=== PATIENT | female | born 1985 ===

== ENCOUNTER 2019-01-23 21:22 | Emergency (ER) | payer MEDICAID, OTHER ==
[2019-01-23 21:45] VITALS: BP 145/80; PULSE 85; RESP 16; TEMP 98.5; O2SAT 99
[2019-01-23 22:31] LABS: BASO # 0.1 K/uL (0.0-0.2); BASO % 0.6 % (0.0-2.0); EOS # 0.2 K/uL (0.0-0.7); EOS % 1.3 % (0.0-4.0); HEMOGLOBIN 12.8 g/dL (12.0-16.0); LYMPH # 2.5 K/uL (1.0-4.3); LYMPH % 21.4 % (20.0-40.0); MEAN CORPUSCULAR HEMOGLOBIN 29.2 pg (27.0-31.0); MEAN CORPUSCULAR HGB CONC 33.9 g/dL (33.0-37.0); MEAN PLATELET VOLUME 8.8 fl (7.2-11.7); MONO # 0.8 K/uL (0.0-0.8); MONO % 6.7 % (0.0-10.0); NEUT # 8.2 K/uL (1.8-7.0); NRBC % 0.1 % (0.0-0.0); RBC 4.37 Mil/uL (3.80-5.20); RED CELL DISTRIBUTION WIDTH 13.9 % (11.5-14.5); WHITE BLOOD COUNT 11.7 K/uL (4.8-10.8)
[2019-01-23 22:33] LABS: SQUAMOUS EPITHIAL 12 /hpf (0-5); URINE BILIRUBIN NEGATIVE (NEGATIVE); URINE BLOOD NEGATIVE (NEGATIVE); URINE CLARITY CLOUDY (Clear); URINE COLOR YELLOW (YELLOW); URINE GLUCOSE (UA) NEG (NEGATIVE); URINE LEUKOCYTE ESTERASE NEG Leu/uL (Negative); URINE PROTEIN NEGATIVE (NEGATIVE); URINE UROBILINOGEN 0.2-1.0 mg/dL (0.2-1.0)
[2019-01-23 22:36] LABS: ALB/GLOB RATIO 1.5 (1.0-2.1); ALT/SGPT 32 U/L (9-52); AST/SGOT 35 U/L (14-36); BLOOD UREA NITROGEN 9 mg/dl (7-17); CALCIUM 9.4 mg/dL (8.4-10.2); GFR NON-AFRICAN AMERICAN > 60; LIPASE 74 U/L (23-300)
--- NOTE | 2019-01-23 23:15 | ED PDOC ---
HPI: Back Time Seen by Provider: 01/23/19 21:48 Chief Complaint (Nursing): Back Pain History/Exam Limitations: language barrier (nigerian speaking, rn translated) Onset/Duration Of Symptoms: Days Additional Complaint(s): 33 yo F present for right sided back pain for 4 months. Pt reports pain has been constant since she was and continued after giving 4 months ago, she notes early this morning at 0200 the pain got worse and wrapped around to the RUQ associated with mild nausea. Pt took Advil this morning with mild relief. Movement and deep breaths make the pain worse. Pt denies heavy lifting or injuries. Denies chest pain, SOB, vomiting, urinary symptoms, changes in bowel movements, leg pain or swelling. Denies h/o kidney stones pt is Past Medical History Reviewed: Historical Data, Nursing Documentation, Vital Signs Vital Signs: Last Vital Signs Temp 98.5 F 01/23/19 21:44 Pulse 85 01/23/19 21:44 Resp 16 01/23/19 21:44 BP 145/80 01/23/19 21:44 Pulse Ox 99 01/23/19 21:44 Primary Care Provider: FAMILY PROVIDER,NO - Medical History PMH: Denies: Depression, Diabetes, HTN, Chronic Kidney Disease - Surgical History Surgical History: - Family History Family History: States: No Known Family Hx - Home Medications Home Medications: Ambulatory Orders Medication Instructions Recorded Docusate [Colace] 100 mg PO BID #60 cap 09/12/18 Ferrous Sulfate [Feosol] 324 mg PO DAILY #30 ect 09/12/18 Ibuprofen [Motrin Tab] 600 mg PO Q6H PRN #60 tab 09/12/18 Multivit/Folic Acid/I 1 tab PO DAILY #30 tab 09/12/18 [] Cyclobenzaprine [Cyclobenzaprine 10 mg PO TID PRN #12 tab 01/23/19 HCl] Naproxen 500 mg PO BID PRN #20 tab 01/23/19 - Allergies Allergies/Adverse Reactions: Allergies Allergy/AdvReac Type Severity Reaction Status Date / Time No Known Allergies Allergy Verified 01/23/19 21:43 Review of Systems Constitutional: Negative for: Fever, Chills Cardiovascular: Negative for: Chest Pain Respiratory: Negative for: Cough, Shortness of Breath Gastrointestinal: Positive for: Nausea, Abdominal Pain. Negative for: Vomiting, Diarrhea, Constipation Genitourinary Female: Negative for: Dysuria, Frequency, Hematuria Musculoskeletal: Positive for: Back Pain Physical Exam - Reviewed Nursing Documentation Reviewed: Yes Vital Signs Reviewed: Yes - Physical Exam Comments: GENERAL APPEARANCE: Patient is awake, alert, oriented x 3, in no distress. SKIN: Warm, dry; (-) cyanosis. EYES: (-) conjunctival pallor, (-) scleral icterus. ENMT: Mucous membranes moist. NECK: (-) tenderness, (-) stiffness, (-) lymphadenopathy. CHEST AND RESPIRATORY: (-) rales, (-) rhonchi, (-) wheezes; breath sounds equal bilaterally. HEART AND CARDIOVASCULAR: (-) irregularity; (-) murmur, (-) gallop. ABDOMEN AND GI: (-) distention. soft Bowel sounds active; (+)mild tenderness to RUQ and right mid quadrant. (-) guarding, (-) rebound, (-) palpable masses, BACK: (+) mild right CVAT extending down to lumbar muscles (-)midline tenderness (+)FROM EXTREMITIES: (-) deformity, (-) edema, (+) distal pulses. NEURO AND PSYCH: Mental status as above; (-) focal findings. - Laboratory Results Result Diagrams: 01/23/19 22:17 01/23/19 22:17 Lab Results: Total Bilirubin 0.2 mg/dl (0.2-1.3) 01/23/19 22:17 AST 35 U/L (14-36) 01/23/19 22:17 ALT 32 U/L (9-52) 01/23/19 22:17 Alkaline Phosphatase 78 U/L (38-126) 01/23/19 22:17 Total Protein 8.2 G/DL (6.3-8.2) 01/23/19 22:17 Albumin 5.0 g/dL (3.5-5.0) 01/23/19 22:17 Globulin 3.2 gm/dL (2.2-3.9) 01/23/19 22:17 Albumin/Globulin Ratio 1.5 (1.0-2.1) 01/23/19 22:17 Lipase 74 U/L (23-300) 01/23/19 22:17 Urine Color Yellow (YELLOW) 01/23/19 22:20 Urine Clarity Cloudy (Clear) 01/23/19 22:20 Urine pH 6.0 (5.0-8.0) 01/23/19 22:20 Ur Specific [place] 1.016 (1.003-1.030) 01/23/19 22:20 Urine Protein Negative mg/dL (NEGATIVE) 01/23/19 22:20 Urine Glucose (UA) Neg mg/dL (NEGATIVE) 01/23/19 22:20 Urine Ketones Negative mg/dL (NEGATIVE) 01/23/19 22:20 Urine Blood Negative (NEGATIVE) 01/23/19 22:20 Urine Nitrate Negative (NEGATIVE) 01/23/19 22:20 Urine Bilirubin Negative (NEGATIVE) 01/23/19 22:20 Urine Urobilinogen 0.2-1.0 mg/dL (0.2-1.0) 01/23/19 22:20 Ur Leukocyte Esterase Neg Mahesh/uL (Negative) 01/23/19 22:20 Urine RBC (Auto) 3 /hpf (0-3) 01/23/19 22:20 Urine Microscopic WBC 2 /hpf (0-5) 01/23/19 22:20 Ur Squamous Epith Cells 12 /hpf (0-5) H 01/23/19 22:20 - ECG O2 Sat by Pulse Oximetry: 99 Medical Decision Making Medical Decision Makin:48 initial eval -- UTI vs pyelo vs abdominal pain vs muscle pain -- labs -- UA -- CXR -- TOradol IM -- re eval 23:15 on re eval pt reports pain is pretty much resolved at this time, abdomen is soft and non tender, UA unremarkable, labs unremarkable, mild leukocytosis, pain on going for 4 months, likely muscular related Discussed results, diagnosis, treatment, return precautions and f/u with pt who is understanding, in agreement and stable for dc Disposition - Clinical Impression Clinical Impression: Back pain, Abdominal pain - Patient ED Disposition Is Patient to be Admitted: No Counseled Patient/Family Regarding: Studies Performed, Diagnosis, Need For Followup, Rx Given - Disposition Referrals: [facility] [Outside] Disposition: Routine/Home Disposition Time: 23:26 Condition: IMPROVED Additional Instructions: Berhane por dejarnos cuidar de ti hoy. La atencin mdica de emergencia que recibi hoy se dirigi a hillary sntomas agudos. Si le recetaron algn medicamento, llnelo y tmelo segn las indicaciones. No conduzca ni [place]wick alcohol cuando est tomando flexeril. Los sntomas pueden tardar varios fagan en resolverse. Regrese al Departamento de Emergencias si hillary sntomas empeoran, no mejoran o si tiene otros problemas. Comunquese con gale mdico dentro de 2 fagan para jesus nueva evaluacin y yuliana un seguimiento o llame a gilberto de los mdicos / clnicas a los que montesinos sido referido y que figuran en el formulario de Informacin de visita al paciente que se incluye en gale paquete de genevieve. Lleve todos los documentos que recibi al momento del genevieve junto con los medicamentos que est tomando para gale visita de seguimiento. Nuestro tratamiento no puede reemplazar la atencin mdica continua por parte de un proveedor de atencin primaria (PCP) fuera del departamento de emergencias. Prescriptions: Cyclobenzaprine [Cyclobenzaprine HCl] 10 mg PO TID PRN #12 tab PRN Reason: muscle pain Naproxen 500 mg PO BID PRN #20 tab PRN Reason: Pain, Moderate (4-7) Instructions: Low Back Pain (DC), Acute Abdomen (Belly Pain), Stomach Ache and Stomach Upset Forms: [employer] (Colombian) Print Language: HUNGARIAN - POA Present On Arrival: None
--- NOTE | 2019-01-24 09:47 | RAD ---
Date of service: 01/23/2019 HISTORY: ruq pain COMPARISON: No prior. TECHNIQUE: Chest PA and lateral views FINDINGS: LUNGS: No active pulmonary disease. PLEURA: No significant pleural effusion identified. No pneumothorax apparent. CARDIOVASCULAR: No aortic atherosclerotic calcification present. Normal cardiac size. No pulmonary vascular congestion. OSSEOUS STRUCTURES: No significant abnormalities. VISUALIZED UPPER ABDOMEN: Normal. OTHER FINDINGS: None. IMPRESSION: No acute cardiopulmonary disease appreciated.
== END 2019-01-23 23:28 | disposition home or self-care (01) ==
LOC: H.ER 21:22
DX: M54.9 Dorsalgia, unspecified (principal); R10.2 Pelvic and perineal pain
CPT/HCPCS: 71046; 80053; 81003; 81025; 83690; 85025; 96374; 99283; J1885

== ENCOUNTER 2019-01-24 00:44 | Inpatient (IN) | payer MEDICAID, OTHER ==
[2019-01-24 01:36] LABS: BASO # 0.1 K/uL (0.0-0.2); BASO % 0.4 % (0.0-2.0); EOS # 0.1 K/uL (0.0-0.7); EOS % 0.8 % (0.0-4.0); HEMOGLOBIN 12.5 g/dL (12.0-16.0); LYMPH # 2.1 K/uL (1.0-4.3); LYMPH % 15.2 % (20.0-40.0); MEAN CELL VOLUME 86.2 fl (81.0-99.0); MEAN CORPUSCULAR HEMOGLOBIN 28.9 pg (27.0-31.0); MEAN CORPUSCULAR HGB CONC 33.6 g/dL (33.0-37.0); MONO # 0.6 K/uL (0.0-0.8); MONO % 4.5 % (0.0-10.0); NEUT # 11.1 K/uL (1.8-7.0); NEUT % 79.1 % (50.0-75.0); RBC 4.33 Mil/uL (3.80-5.20); RED CELL DISTRIBUTION WIDTH 13.6 % (11.5-14.5)
--- NOTE | 2019-01-24 01:37 | ED PDOC ---
HPI: Abdomen Time Seen by Provider: 01/24/19 00:58 Chief Complaint (Nursing): Abdominal Pain Chief Complaint (Provider): Abdominal Pain History Per: Patient History/Exam Limitations: no limitations Onset/Duration Of Symptoms: Hrs Additional Complaint(s): 33 y/o female with history of recent delivery in August, presents for abdominal pain. Patient states that during her she had intermittent RUQ pain. Today she presents for similar pain the pain was more intense and involves the right flank and back. Patient was seen in fast track at this ED just prior to this presentation and was diagnosed with musculoskeltal pain. At that time she had normal labs and CXR. Patient left the ER and immediately came back stating that the pain is much more intense now and in her RUQ. Patient has associated nausea. She states pain is worse on inhalation. Past Medical History Reviewed: Historical Data, Nursing Documentation, Vital Signs Vital Signs: Last Vital Signs Temp 97.7 F 01/24/19 00:52 Pulse 81 01/24/19 00:52 Resp 16 01/24/19 00:52 BP 164/72 H 01/24/19 00:52 Pulse Ox 100 01/24/19 00:52 Primary Care Provider: FAMILY PROVIDER,NO - Medical History PMH: No Chronic Diseases Denies: Depression, Diabetes, HTN, Chronic Kidney Disease - Surgical History Surgical History: - Family History Family History: States: Unknown Family Hx - Social History Current smoker - smoking cessation education provided: No Alcohol: None Drugs: Denies - Home Medications Home Medications: Ambulatory Orders Medication Instructions Recorded No Known Home Med 01/24/19 - Allergies Allergies/Adverse Reactions: Allergies Allergy/AdvReac Type Severity Reaction Status Date / Time No Known Allergies Allergy Verified 01/23/19 21:43 Review of Systems ROS Statement: Except As Marked, All Systems Reviewed And Found Negative Gastrointestinal: Positive for: Nausea, Abdominal Pain Physical Exam - Reviewed Nursing Documentation Reviewed: Yes Vital Signs Reviewed: Yes - Physical Exam Appears: Positive for: Uncomfortable Head Exam: Positive for: ATRAUMATIC, NORMAL INSPECTION, NORMOCEPHALIC Skin: Positive for: Normal Color, Warm, DRY Eye Exam: Positive for: EOMI, Normal appearance, PERRL Cardiovascular/Chest: Positive for: Regular Rate, Rhythm. Negative for: Murmur Respiratory: Positive for: Normal Breath Sounds. Negative for: Respiratory Distress Gastrointestinal/Abdominal: Positive for: Tenderness (Positive Wilkinson's sign) Back: Positive for: Normal Inspection. Negative for: L CVA Tenderness, R CVA Tenderness Extremity: Positive for: Normal ROM. Negative for: Pedal Edema, Deformity Neurological/Psych: Positive for: Awake, Alert, Normal Tone. Negative for: Motor/Sensory Deficits - Laboratory Results Result Diagrams: 01/24/19 01:37 01/24/19 01:37 - ECG O2 Sat by Pulse Oximetry: 100 (RA) Pulse Ox Interpretation: Normal Medical Decision Making Medical Decision Making: Time: 00:59 Impression: 33 y/o with RUQ pain Initial Plan: Labs US Toradol 3AM Patient c/o persistent pain; Morphine 2 mg x 1 Labs reviewed significant for elevated WBC and AST/ALT 4AM U/S demonstrates findings c/w calculus cholesystitis IV Zosyn ordered Case d/w Dr rubio Surgical MARY ANN who has advised patient to be admitted under Dr Ponce, She will inform Dr Ponce of patient Dx Acute Cholecystitis, Cholelithiasis Fair Scribe Attestation: Documented by Roderick Cantu, acting as a scribe for Sanjay Bueno MD. Provider Scribe Attestation: All medical record entries made by the Scribe were at my direction and personally dictated by me. I have reviewed the chart and agree that the record accurately reflects my personal performance of the history, physical exam, medical decision making, and the department course for this patient. I have also personally directed, reviewed, and agree with the discharge instructions and disposition. Disposition - Clinical Impression Clinical Impression: Cholecystitis with cholelithiasis - Disposition Disposition Time: 04:00 Condition: FAIR
[2019-01-24 01:48] LABS: SQUAMOUS EPITHIAL 29 /hpf (0-5); URINE BILIRUBIN NEGATIVE (NEGATIVE); URINE BLOOD NEGATIVE (NEGATIVE); URINE CLARITY CLOUDY (Clear); URINE COLOR YELLOW (YELLOW); URINE GLUCOSE (UA) NEG (NEGATIVE); URINE LEUKOCYTE ESTERASE NEG Leu/uL (Negative); URINE PROTEIN 30 mg/dL (NEGATIVE)
[2019-01-24 01:57] LABS: ALB/GLOB RATIO 1.5 (1.0-2.1); ALBUMIN 4.6 g/dL (3.5-5.0); ALT/SGPT 105 U/L (9-52); AST/SGOT 218 U/L (14-36); BLOOD UREA NITROGEN 10 mg/dl (7-17); GFR NON-AFRICAN AMERICAN > 60; LIPASE 258 U/L (23-300)
[2019-01-24] MEDS ORDERED: Piperacillin/Tazobact 3.375 GM in Sodium Chloride 0.9% 100 ML IV STA (03:55)
[2019-01-24] MEDS ORDERED: Piperacillin/Tazobact 3.375 gm Inj IVPB ONE (04:21)
[2019-01-24] MEDS: Sodium Chloride 0.9% 1,000 ML IV STA ×2 (05:33→05:46)
[2019-01-24] MEDS: Lactated Ringer's 1,000 ML IV SCH ×2 (05:47→17:55)
--- NOTE | 2019-01-24 08:10 | CP.PCM.HP ---
History of Present Illness - History of Present Illness History of Present Illness: Surgery H&P- Dr. Ponce CC: Abdominal Pain 33F pmhx significant for x2 most recent 4 months ago, presents to [facility] ED w/ mid-epigastric to RUQ over the past 1 day, worse with food. Patient had similar pain in the months prior that always resolved on its own. Denies fevers, chills, chest pain, shortness of breath. Stated some nausea, denies vomiting, changes in urinary, or bowel habits. PMH: denies PSH: x2 (one midline, pfannenstiel) ALL: NKDA SocialHx: Breast feeds at home. Denies tobacco, etoh, recreation drug use FH: non-contributory Present on Admission - Present on Admission Any Indicators Present on Admission: No Past Patient History - Past Medical History & Family History Past Medical History?: No - Past Social History Smoking Status: Never Smoked - CARDIAC Hx Cardiac Disorders: No Hx Hypertension: No - PULMONARY Hx Respiratory Disorders: No - NEUROLOGICAL Hx Neurological Disorder: No - HEENT Hx HEENT Problems: No - RENAL Hx Chronic Kidney Disease: No - ENDOCRINE/METABOLIC Hx Endocrine Disorders: No - HEMATOLOGICAL/ONCOLOGICAL Hx Blood Disorders: No - INTEGUMENTARY Hx Dermatological Problems: No - MUSCULOSKELETAL/RHEUMATOLOGICAL Hx Musculoskeletal Disorders: No Hx Falls: No - GASTROINTESTINAL Hx Gastrointestinal Disorders: No - GENITOURINARY/GYNECOLOGICAL Hx Genitourinary Disorders: No - PSYCHIATRIC Hx Psychophysiologic Disorder: No Hx Substance Use: No - SURGICAL HISTORY Hx Surgeries: Yes Hx Section: Yes - ANESTHESIA Hx Anesthesia: Yes Hx Anesthesia Reactions: No Meds Allergies/Adverse Reactions: Allergies Allergy/AdvReac Type Severity Reaction Status Date / Time No Known Allergies Allergy Verified 01/23/19 21:43 Physical Exam - Constitutional Appears: Non-toxic, No Acute Distress - Head Exam Head Exam: ATRAUMATIC - Eye Exam Eye Exam: EOMI. absent: Scleral icterus - ENT Exam ENT Exam: Mucous Membranes Moist - Respiratory Exam Respiratory Exam: NORMAL BREATHING PATTERN. absent: Accessory Muscle Use, Respiratory Distress - Cardiovascular Exam Cardiovascular Exam: REGULAR RHYTHM. absent: Bradycardia, Tachycardia - GI/Abdominal Exam GI & Abdominal Exam: Soft, Tenderness (Tenderness to palpation RUQ, radiates to the back). absent: Distended, Firm, Guarding, Hernia, Rigid - Neurological Exam Neurological exam: Alert, Oriented x3 - Psychiatric Exam Psychiatric exam: Normal Affect - Skin Skin Exam: Intact, Normal Color Results - Vital Signs Recent Vital Signs: Last Vital Signs Temp 98.0 F 01/24/19 05:17 Pulse 80 01/24/19 05:17 Resp 18 01/24/19 05:17 BP 118/72 01/24/19 05:17 Pulse Ox 99 01/24/19 05:17 - Labs Result Diagrams: 01/24/19 01:37 01/24/19 01:37 Labs: Laboratory Results - last 24 hr 01/24/19 01/24/19 01/24/19 01:37 01:37 01:37 WBC 14.0 H RBC 4.33 Hgb 12.5 Hct 37.3 MCV 86.2 MCH 28.9 MCHC 33.6 RDW 13.6 Plt Count 241 MPV 9.0 Neut % (Auto) 79.1 H Lymph % (Auto) 15.2 L [place] % (Auto) 4.5 Eos % (Auto) 0.8 Baso % (Auto) 0.4 Neut # (Auto) 11.1 H Lymph # (Auto) 2.1 [place] # (Auto) 0.6 Eos # (Auto) 0.1 Baso # (Auto) 0.1 Sodium 137 Potassium 3.7 Chloride 103 Carbon Dioxide 24 Anion Gap 14 BUN 10 Creatinine 0.5 L Est GFR ( Amer) > 60 Est GFR (Non-Af Amer) > 60 Random Glucose 122 H Lactic Acid Calcium 9.0 Total Bilirubin 0.5 AST 218 H D ALT 105 H D Alkaline Phosphatase 116 Total Protein 7.6 Albumin 4.6 Globulin 3.1 Albumin/Globulin Ratio 1.5 Lipase 258 Urine Color Yellow Urine Clarity Cloudy Urine pH 5.0 Ur Specific [place] 1.030 Urine Protein 30 Urine Glucose (UA) Neg Urine Ketones Negative Urine Blood Negative Urine Nitrate Negative Urine Bilirubin Negative Urine Urobilinogen 2.0 H Ur Leukocyte Esterase Neg Urine RBC (Auto) 4 H Urine Microscopic WBC 3 Ur Squamous Epith Cells 29 H 01/24/19 04:15 WBC RBC Hgb Hct MCV MCH MCHC RDW Plt Count MPV Neut % (Auto) Lymph % (Auto) [place] % (Auto) Eos % (Auto) Baso % (Auto) Neut # (Auto) Lymph # (Auto) [place] # (Auto) Eos # (Auto) Baso # (Auto) Sodium Potassium Chloride Carbon Dioxide Anion Gap BUN Creatinine Est GFR ( Amer) Est GFR (Non-Af Amer) Random Glucose Lactic Acid 1.3 Calcium Total Bilirubin AST ALT Alkaline Phosphatase Total Protein Albumin Globulin Albumin/Globulin Ratio Lipase Urine Color Urine Clarity Urine pH Ur Specific [place] Urine Protein Urine Glucose (UA) Urine Ketones Urine Blood Urine Nitrate Urine Bilirubin Urine Urobilinogen Ur Leukocyte Esterase Urine RBC (Auto) Urine Microscopic WBC Ur Squamous Epith Cells Assessment & Plan - Assessment and Plan (Free Text) Assessment: 33F w/ Acute Cholecystitis Plan: - NPO - IVF/Abx - plan for Cholecystectomy - pain control PRN - anti-emetic - discussed w/ Dr. Ponce Surgical attending [facility] PGY2
[2019-01-24] MEDS ORDERED: Ciprofloxacin 400mg/200ml D5W 400 MG/200 ML BAG IVPB SCH (09:00)
--- NOTE | 2019-01-24 13:46 | US ---
Date of service: 01/24/2019 HISTORY: abd pain COMPARISON: None. TECHNIQUE: Sonographic evaluation of the right upper quadrant of the abdomen. FINDINGS: LIVER: Measures 15.6 cm in length. Normal echogenicity of the liver parenchyma. No mass. No intrahepatic bile duct dilatation. GALLBLADDER: Gallbladder is distended with extensive sludge in the lumen but no defined calculus. Mural thickening is appreciate up to 8.7 mm with trace pericholecystic fluid collection and positive reported sonographic Wilkinson sign compatible most likely with cholecystitis. COMMON BILE DUCT: Measures 6.4 mm. No stones. No dilatation. PANCREAS: Unremarkable as visualized. No mass. No ductal dilatation. RIGHT KIDNEY: Measures 9.7 cm in length. Normal echogenicity. No calculus, mass, or hydronephrosis. AORTA: No aneurysmal dilatation. IVC: Unremarkable. OTHER FINDINGS: None . IMPRESSION: Pattern highly suspicious for cholecystitis, potentially acalculus type. No prominent biliary tree dilatation although common bile duct is upper limits normal at 6.4 mm but without demonstrated choledocholithiasis. Consider follow-up MRCP and possible nuclear hepatobiliary scan. Concordant preliminary report from [facility], 01/24/2018, 3:48 a.m..
[2019-01-24] MEDS ORDERED: Midazolam 2 MG/2 ML VIAL ONE (15:48)
[2019-01-24] MEDS ORDERED: Propofol 10 mg/ml Inj (20 ML) ONE (15:48)
[2019-01-24] MEDS ORDERED: Rocuronium 10 mg/ml (5 ml) ONE (15:49)
[2019-01-24] MEDS ORDERED: Lactated Ringer's 1,000 ML IV ONE (15:52)
[2019-01-24] MEDS ORDERED: metroNIDAZOLE 500mg/100ml NS 100 ML IVPB ONE (16:03)
[2019-01-24] MEDS ORDERED: Ciprofloxacin 400mg/200ml D5W 400 MG/200 ML BAG IVPB ONE (16:04)
[2019-01-24] MEDS: Bupivacaine 0.5% Inj(30mL) ONE ×2 (16:29→17:30)
[2019-01-24] MEDS ORDERED: Neostigmine 1:1000 (1 mg/ml) Inj ONE (17:25)
[2019-01-24] MEDS ORDERED: oxyCODONE 5 mg Immediate Release Tab PO PRN (17:42)
--- NOTE | 2019-01-24 17:45 | PCM.SURG1 ---
Surgeon's Initial Post Op Note - Surgeon's Notes Surgeon: Dr. Ponce Research Hydraulic Engineer: Dr. Finley, Dr. Barajas Type of Anesthesia: General Endo Anesthesia Administered By: Dr. Crawford Pre-Operative Diagnosis: acute cholecystitis Operative Findings: see operative dictation Post-Operative Diagnosis: same Operation Performed: laparoscopic cholecystectomy Specimen/Specimens Removed: gallbladder Estimated Blood Loss: EBL {In ML}: 10 Blood Products Given: N/A Drains Used: No Drains Post-Op Condition: Good Date of Surgery/Procedure: 01/24/19 Time of Surgery/Procedure: 17:45
[2019-01-24] MEDS ORDERED: HYDROmorphone 0.5 mg/0.5 ml ISec IVP PRN (17:54)
--- NOTE | 2019-01-24 17:54 | PCM.OP ---
Operative Report - Operative Report Date of Surgery/Procedure: 01/24/19 Time of Surgery/Procedure: 18:00 Surgeon: Kris Physics Technical Officer: Malia PGY2, Karl PGY1 Anesthesia/Sedation: General endo Dr. Crawford Pre-Operative Diagnosis: Acute cholecystitis Post-Operative Diagnosis: Acute cholecystitis Indication for Surgery: Acute cholecystitis Operative Findings: Acute cholecystitis, Gallbladder with large stone Procedure/Operation Description: Procedure: laparoscopic cholecystectomy 33F who presents with acute cholecystitis going to the operating room for Laparoscopic Cholecystectomy. Consent was obtained before the procedure. Risks/benefits were discussed at length with the patient. The patient verbalized understanding and agreement. Patient was taken to the operating room and placed in the supine position. SCDs Were applied to bilateral lower extremities. General endotracheal anesthesia was administered. The patients abdomen was prepped and draped in the usual sterile fashion. Timeout was performed. #11 blade was used to make supraumbilical incision. Open stewart technique was utilized to enter the abdomen. 12 mm laparoscopic trocar was inserted through the supraumbilical incision. The abdomen was insufflated to the optimal 15 mmhg with CO2. Under direct visualization, a 5 mm was placed subxiphoid then two additional 5 mm port were beneath the right costal margin (one medial and one lateral). The gallbladder was visualized. It appeared to have acute inflammation with edema and mild distention. The gallbladder fundus was grasp in elevated towards the right shoulder. The infundibulum was cleared of overlying fatty tissue invitations then grasp and retracted laterally. The cystic duct was identified and dissected bluntly. The cystic duct was cleared towards the junction of the CBD as well as near its insertion to the gallbladder. The cystic artery was then identify and bluntly dissected. The critical view of safety was achieved. Three Clips were placed on the cystic duct and then it was divided with Endo Marshal. The cystic artery was also clipped in the same fashion then was divided as well. A posterior branch of the cystic artery with bifurcation was identified. Three more clips were placed on the posterior branch before it was divided with Endo Marshal. The gallbladder was dissected off the liver bed using electrocautery. The liver bed was inspected for hemostasis before the dissection was completed. The gallbladder was completely removed from the liver bed and placed in a specimen retrieval bag before being removed from the supraumbilical port site. The right upper quadrant was irrigated and section. There was no evidence of bile or bleeding. The pneumoperitoneum was released and all the trocars were removed. The umbilical port site was then closed at the fascial layer with a figure of eight using 0 Vicryl on UR6 needle. All incisions were closed with subcuticular 4-0 Monocryl sutures. Dermabond was applied as sterile dressing. All nursing counts were correct and confirmed. Patient tolerated the procedure well with no pain complications. The patient was transferred to the PACU for recovery. Estimated blood loss was 10 mL. Patient to be transferred back to med/surg floor with regular diet after recovery. Estimated Blood Loss: 10 cc Complications: None Discharge & Condition: good, Patient to be transferred back to med/surg floor with regular diet after r ecovery.
[2019-01-25] MEDS: Ciprofloxacin 400mg/200ml D5W 400 MG/200 ML BAG IVPB SCH ×2 (03:50→15:30)
[2019-01-25] MEDS: Lactated Ringer's 1,000 ML IV SCH ×3 (03:57→15:34)
--- NOTE | 2019-01-25 05:38 | CP.PCM.DIS ---
Provider - Provider Date of Admission: 01/24/19 04:09 Attending physician: Andre Quispe MD Consults: 01/24/19 06:38 Consult Routine Comment: Physician Instructions: Reason For Exam: currently Time Spent in preparation of Discharge (in minutes): 40 Diagnosis - Discharge Diagnosis (1) Cholecystitis with cholelithiasis Status: Acute Hospital Course - Lab Results Lab Results: Micro Results 01/24/19 04:25 Blood-Venous Blood Culture - Preliminary NO GROWTH AFTER 24 HOURS 01/24/19 04:15 Blood-Venous Blood Culture - Preliminary NO GROWTH AFTER 24 HOURS Most Recent Lab Values WBC 14.0 K/uL (4.8-10.8) H 01/24/19 01:37 RBC 4.33 Mil/uL (3.80-5.20) 01/24/19 01:37 Hgb 12.5 g/dL (12.0-16.0) 01/24/19 01:37 Hct 37.3 % (34.0-47.0) 01/24/19 01:37 MCV 86.2 fl (81.0-99.0) 01/24/19 01:37 MCH 28.9 pg (27.0-31.0) 01/24/19 01:37 MCHC 33.6 g/dL (33.0-37.0) 01/24/19 01:37 RDW 13.6 % (11.5-14.5) 01/24/19 01:37 Plt Count 241 K/uL (130-400) 01/24/19 01:37 MPV 9.0 fl (7.2-11.7) 01/24/19 01:37 Neut % (Auto) 79.1 % (50.0-75.0) H 01/24/19 01:37 Lymph % (Auto) 15.2 % (20.0-40.0) L 01/24/19 01:37 [place] % (Auto) 4.5 % (0.0-10.0) 01/24/19 01:37 Eos % (Auto) 0.8 % (0.0-4.0) 01/24/19 01:37 Baso % (Auto) 0.4 % (0.0-2.0) 01/24/19 01:37 Neut # (Auto) 11.1 K/uL (1.8-7.0) H 01/24/19 01:37 Lymph # (Auto) 2.1 K/uL (1.0-4.3) 01/24/19 01:37 [place] # (Auto) 0.6 K/uL (0.0-0.8) 01/24/19 01:37 Eos # (Auto) 0.1 K/uL (0.0-0.7) 01/24/19 01:37 Baso # (Auto) 0.1 K/uL (0.0-0.2) 01/24/19 01:37 Sodium 137 mmol/l (132-148) 01/24/19 01:37 Potassium 3.7 MMOL/L (3.6-5.0) 01/24/19 01:37 Chloride 103 mmol/L (98-107) 01/24/19 01:37 Carbon Dioxide 24 mmol/L (22-30) 01/24/19 01:37 Anion Gap 14 (10-20) 01/24/19 01:37 BUN 10 mg/dl (7-17) 01/24/19 01:37 Creatinine 0.5 mg/dl (0.7-1.2) L 01/24/19 01:37 Est GFR ( Amer) > 60 01/24/19 01:37 Est GFR (Non-Af Amer) > 60 01/24/19 01:37 Random Glucose 122 mg/dL (65-105) H 01/24/19 01:37 Lactic Acid 1.3 mmol/L (0.7-2.1) 01/24/19 04:15 Calcium 9.0 mg/dL (8.4-10.2) 01/24/19 01:37 Total Bilirubin 0.5 mg/dl (0.2-1.3) 01/24/19 01:37 AST 218 U/L (14-36) H D 01/24/19 01:37 ALT 105 U/L (9-52) H D 01/24/19 01:37 Alkaline Phosphatase 116 U/L (38-126) 01/24/19 01:37 Total Protein 7.6 G/DL (6.3-8.2) 01/24/19 01:37 Albumin 4.6 g/dL (3.5-5.0) 01/24/19 01:37 Globulin 3.1 gm/dL (2.2-3.9) 01/24/19 01:37 Albumin/Globulin Ratio 1.5 (1.0-2.1) 01/24/19 01:37 Lipase 258 U/L (23-300) 01/24/19 01:37 Urine Color Yellow (YELLOW) 01/24/19 01:37 Urine Clarity Cloudy (Clear) 01/24/19 01:37 Urine pH 5.0 (5.0-8.0) 01/24/19 01:37 Ur Specific [place] 1.030 (1.003-1.030) 01/24/19 01:37 Urine Protein 30 mg/dL (NEGATIVE) 01/24/19 01:37 Urine Glucose (UA) Neg mg/dL (NEGATIVE) 01/24/19 01:37 Urine Ketones Negative mg/dL (NEGATIVE) 01/24/19 01:37 Urine Blood Negative (NEGATIVE) 01/24/19 01:37 Urine Nitrate Negative (NEGATIVE) 01/24/19 01:37 Urine Bilirubin Negative (NEGATIVE) 01/24/19 01:37 Urine Urobilinogen 2.0 mg/dL (0.2-1.0) H 01/24/19 01:37 Ur Leukocyte Esterase Neg Mahesh/uL (Negative) 01/24/19 01:37 Urine RBC (Auto) 4 /hpf (0-3) H 01/24/19 01:37 Urine Microscopic WBC 3 /hpf (0-5) 01/24/19 01:37 Ur Squamous Epith Cells 29 /hpf (0-5) H 01/24/19 01:37 - Hospital Course Hospital Course: 33F pmhx significant for x2 most recent 4 months ago, presents to [facility] ED w/ mid-epigastric to RUQ over the past 1 day, worse with food. Patient had similar pain in the months prior that always resolved on its own. Denies fevers, chills, chest pain, shortness of breath. Stated some nausea, denies vomiting, changes in urinary, or bowel habits. Patient was admitted for acute cholecystitis. She was started on IV abx and IVF. She was made NPO as well as given analgesics/anti-emetics PRN. Patient was scheduled to go to OR for laparoscopic cholecystectomy later that same day of admission. Patient on the procedure on 01/24. Patient tolerated the procedure well with no complications. She was given regular diet after the procedure and continued on IV abx. The next morning, patient was feeling fine. She was tolerating diet and passing flatus. Patient ambulated and urinated without difficulty. Hgb was found to decrease to 11.0 from 12.5. Repeat CBC around 1pm showed Hgb was stable at 11.7. At that time, patient was deemed medcially stable for discharge to home. She was instructed to follow within 1-2 week as outpatient with Dr. Quispe in his office. (This is a summary of the hospital course. Please refer to EMR for more details.) - Date & Time of H&P Date of H&P: 01/24/19 Time of H&P: 07:56 Discharge Exam - Head Exam Head Exam: ATRAUMATIC, NORMAL INSPECTION, NORMOCEPHALIC - Eye Exam Eye Exam: EOMI, Normal appearance Pupil Exam: PERRL - ENT Exam ENT Exam: Mucous Membranes Moist - Respiratory Exam Respiratory Exam: NORMAL BREATHING PATTERN - Cardiovascular Exam Cardiovascular Exam: REGULAR RHYTHM - GI/Abdominal Exam GI & Abdominal Exam: Normal Bowel Sounds, Soft. absent: Distended, Firm, Rebound, Rigid, Tenderness Additional comments: surgical siteswith dressings - clean/dry/intact - Extremities Exam Extremities exam: normal capillary refill - Back Exam Back exam: absent: CVA tenderness (L), CVA tenderness (R) - Neurological Exam Neurological exam: Alert, CN II-XII Intact, Normal Gait, Oriented x3 - Psychiatric Exam Psychiatric exam: Normal Affect, Normal Mood - Skin Skin Exam: Dry, Intact, Warm Discharge Plan - Follow Up Plan Condition: GOOD Disposition: HOME/ ROUTINE Instructions: Gallstones (DC), Cholecystitis (DC) Additional Instructions: follow up with dr quispe within 1-2 week No heavy lifting over 15-20 lbs for 4 weeks May shower, keep dressing on for [address] Quispe's office for any issues Referrals: Andre Quispe MD [Staff Provider] -
[2019-01-25 07:43] LABS: BASO % 0.7 % (0.0-2.0); EOS # 0.1 K/uL (0.0-0.7); LYMPH # 1.6 K/uL (1.0-4.3); LYMPH % 23.8 % (20.0-40.0); MEAN CELL VOLUME 87.5 fl (81.0-99.0); MEAN CORPUSCULAR HEMOGLOBIN 29.9 pg (27.0-31.0); MEAN CORPUSCULAR HGB CONC 34.2 g/dL (33.0-37.0); MEAN PLATELET VOLUME 8.9 fl (7.2-11.7); MONO # 0.5 K/uL (0.0-0.8); NEUT # 4.4 K/uL (1.8-7.0); NEUT % 65.5 % (50.0-75.0); NRBC % 0.1 % (0.0-0.0); RBC 3.69 Mil/uL (3.80-5.20); RED CELL DISTRIBUTION WIDTH 13.7 % (11.5-14.5); WHITE BLOOD COUNT 6.6 K/uL (4.8-10.8)
[2019-01-25 07:48] LABS: ALB/GLOB RATIO 1.3 (1.0-2.1); ALBUMIN 3.4 g/dL (3.5-5.0); ALT/SGPT 592 U/L (9-52); AST/SGOT 348 U/L (14-36); BLOOD UREA NITROGEN 6 mg/dl (7-17); CALCIUM 8.2 mg/dL (8.4-10.2); GFR NON-AFRICAN AMERICAN > 60
[2019-01-25 08:13] VITALS: O2SAT 98
[2019-01-25 15:24] LABS: HEMOGLOBIN 11.7 g/dL (12.0-16.0); MEAN CELL VOLUME 87.8 fl (81.0-99.0); MEAN CORPUSCULAR HEMOGLOBIN 29.4 pg (27.0-31.0); MEAN CORPUSCULAR HGB CONC 33.5 g/dL (33.0-37.0); WHITE BLOOD COUNT 6.5 K/uL (4.8-10.8)
[2019-01-25 15:58] VITALS: BP 103/64; PULSE 79; RESP 18; TEMP 98.4
== END 2019-01-25 17:40 | disposition home or self-care (01) | DRG 263 ==
LOC: H.ER 00:44 → H.ERHOLD 04:09 → H.MEDSURG1 05:04
PROVIDERS: ADMIT Surgery; ATTEND Surgery
PROC: 0FT44ZZ Resection of Gallbladder, Percutaneous Endoscopic Approach (ICD-10-PCS; principal; 2019-01-24 16:00)
DX: K80.00 Calculus of gallbladder with acute cholecystitis without obstruction (principal)